=== PATIENT | male | born 1965 ===

== ENCOUNTER 2021-06-07 17:10 | Emergency (ER) | payer BC, MEDICAID, OTHER ==
[~2021-06-07] VITALS: Ht 175.3 cm; Wt 117.9 kg
[2021-06-07 18:44] LABS: Basophils # (auto) 0 10 ^3/uL (0-0.2); Basophils % (auto) 0.5 % (0.0-2.0); Eosinophils # (auto) 0.2 10 ^3/uL (0-0.8); Eosinophils % (auto) 3.2 % (0.0-7.0); Hematocrit 33.4 % (41.0-53.0); Hemoglobin 11.2 g/dL (13.5-17.5); Lymphocytes # (auto) 1.7 10 ^3/uL (0.4-5.4); Lymphocytes % (auto) 23.8 % (10.0-50.0); Mean Corpuscular Hemoglobin 30.4 pg (28.0-32.0); Mean Corpuscular Hgb Conc. 33.4 g/dL (32.0-36.0); Mean Corpuscular Volume 91.1 fL (80.0-100.0); Monocytes # (auto) 0.6 10 ^3/uL (0-1.3); Monocytes % (auto) 8.5 % (0.0-12.0); Neutrophils # (auto) 4.6 10 ^3/uL (1.6-8.6); Nucleated Red Blood Cells % 0.1 %; Red Blood Cells 3.67 10^6/uL (4.5-5.90); Red Cell Distribution Width 16.2 % (11.8-14.3); White Blood Cell 7.3 10^3/uL (4.4-10.8)
[2021-06-07 19:03] LABS: Potassium 4.4 mmol/L (3.5-5.1)
[2021-06-07 19:14] LABS: Albumin 2.8 g/dL (3.4-5.0); BUN/Creatinine Ratio 20.9; Bilirubin, Total 0.1 mg/dL (0.2-1.0); Calcium 8.5 mg/dL (8.5-10.1); Total Protein 7.1 g/dL (6.4-8.2)
[2021-06-08] MEDS ORDERED: CEFEPIME 2 GM in SODIUM CHL 0.9% 50 ML IV ONE (05:45)
[2021-06-08 11:54] VITALS: BP 155/96
== END 2021-06-08 11:59 | disposition home or self-care (01) ==
LOC: ER 17:10 → EDBD 17:10 → ER 06-08 11:57
DX: E11.621 Type 2 diabetes mellitus with foot ulcer (principal); I10 Essential (primary) hypertension; Z89.432 Acquired absence of left foot
CPT/HCPCS: 36415; 80053; 85025; 93971; 96365; 96366; 99285; J0692